=== PATIENT | male | born 1960 | race Caucasian/White ===

== ENCOUNTER 2018-06-29 13:24 | Outpatient (CLI) | payer MEDICAID, SELFPAY ==
[2018-06-29 14:42] LABS: ALT 27 U/L (12-78); AST 15 U/L (15-37); Albumin 3.9 g/dL (3.4-5.0); Alkaline Phosphatase 57 U/L (46-116); Anion Gap 10.2 mmol/L (3-11); BUN 14 mg/dL (7-18); Bilirubin, Total 0.2 mg/dL (0.2-1.0); CO2 29.8 mmol/L (21.0-32.0); CREATININE 1.19 mg/dL (0.70-1.30); Calcium 9.4 mg/dL (8.5-10.1); Chloride 100 mmol/L (98-107); Glucose 102 mg/dL (70-100); Potassium 3.5 mmol/L (3.5-5.1); Sodium 140 mmol/L (136-145); Total Protein 7.2 g/dL (6.4-8.2)
[2018-07-03 14:26] LABS: HIV-1 RNA Quantification <20 copies/mL (UNDECT)
== END 2018-06-29 13:44 ==
PROVIDERS: PCP Nurse Practitioner Family; Visit Provider Nurse Practitioner Family
DX: B20 Human immunodeficiency virus [HIV] disease (principal); Z79.899 Other long term (current) drug therapy
CPT/HCPCS: 36415; 80053; 87536

== ENCOUNTER 2018-07-17 13:17 | Outpatient (CLI) | payer MEDICAID, SELFPAY | END 2018-07-17 13:37 | PROVIDERS: PCP Nurse Practitioner Family; Referring Provider Nurse Practitioner Family; Visit Provider Internal Medicine Infectious Disease | DX: B20 Human immunodeficiency virus [HIV] disease (principal); Z79.899 Other long term (current) drug therapy | CPT/HCPCS: 99215 ==

== ENCOUNTER 2018-12-12 09:24 | Outpatient (CLI) | payer MEDICAID, SELFPAY ==
[2018-12-12 09:58] LABS: Abs Immature Grans 0.01 k/cumm (0.0-0.09); Absolute Basophil Count 0.02 k/cumm (0.0-0.2); Absolute Eosinophil Count 0.09 k/cumm (0.0-0.7); Absolute Lymphocyte Count 1.37 k/cumm (1.2-3.4); Absolute Monocyte Count 0.37 k/cumm (0.11-0.7); Absolute Neutrophil Count 2.21 k/cumm (1.2-6.7); Basophils % 0.5; Eosinophils % 2.2; HCT 43.6 % (40.0-50.0); HGB 14.7 g/dL (13.5-17.5); Immature Grans % 0.2; Lymphocytes % 33.7; Mean Corp. HGB Concentration 33.7 g/dL (32.0-36.0); Monocytes % 9.1; Neutrophils % 54.3; Platelet Count 220 x1000/uL (130-400); RBC 4.59 m/cumm (4.50-6.00); RBC Distribution Width 13.3 % (11.8-14.1); White Blood Cell Count 4.07 k/cumm (4.4-10.8)
[2018-12-12 10:24] LABS: ALT 31 U/L (12-78); AST 12 U/L (15-37); Albumin 3.8 g/dL (3.4-5.0); Alkaline Phosphatase 53 U/L (46-116); Anion Gap 7.5 mmol/L (3-11); BUN 18 mg/dL (7-18); Bilirubin, Total 0.4 mg/dL (0.2-1.0); CO2 30.5 mmol/L (21.0-32.0); Calcium 8.9 mg/dL (8.5-10.1); Chloride 103 mmol/L (98-107); Cholesterol 206 mg/dL (50-200); Glucose 96 mg/dL (70-100); HDL Cholesterol 31 mg/dL (40-60); LDL CHOLESTEROL 152 mg/dL (<100); Potassium 4.1 mmol/L (3.5-5.1); Sodium 141 mmol/L (136-145); Total Protein 7.2 g/dL (6.4-8.2); Triglyceride 106 mg/dL (30-150)
[2018-12-13 12:20] LABS: CD3 72 % (62-87); CD4 27 % (35-63); CD8 44 % (10-35)
[2018-12-14 15:12] LABS: HIV-1 RNA Quantification Undetected copies/mL (UNDECT)
== END 2018-12-12 09:44 ==
PROVIDERS: PCP Nurse Practitioner Family; Referring Provider Nurse Practitioner Family; Visit Provider Internal Medicine Infectious Disease
DX: B20 Human immunodeficiency virus [HIV] disease (principal); Z79.899 Other long term (current) drug therapy
CPT/HCPCS: 36415; 80053; 80061; 83721; 87536; 85025; 86359; 86360

== ENCOUNTER 2018-12-18 08:00 | Outpatient (CLI) | payer MEDICAID, SELFPAY | END 2018-12-18 08:20 | PROVIDERS: PCP Nurse Practitioner Family; Referring Provider Nurse Practitioner Family; Visit Provider Internal Medicine Infectious Disease | DX: B20 Human immunodeficiency virus [HIV] disease (principal); Z79.899 Other long term (current) drug therapy | CPT/HCPCS: 99215 ==

== ENCOUNTER 2019-05-18 12:14 | Outpatient (CLI) | payer MEDICAID, SELFPAY ==
[2019-05-18 13:28] LABS: Abs Immature Grans 0.01 k/cumm (0.0-0.09); Absolute Basophil Count 0.02 k/cumm (0.0-0.2); Absolute Eosinophil Count 0.13 k/cumm (0.0-0.7); Absolute Lymphocyte Count 1.52 k/cumm (1.2-3.4); Absolute Monocyte Count 0.37 k/cumm (0.11-0.7); Absolute Neutrophil Count 2.42 k/cumm (1.2-6.7); Basophils % 0.4; Eosinophils % 2.9; HCT 43.2 % (40.0-50.0); HGB 14.5 g/dL (13.5-17.5); Immature Grans % 0.2; Mean Corp. HGB Concentration 33.6 g/dL (32.0-36.0); Mean Corpuscular Hemoglobin 32.2 pg (27.0-33.0); Mean Corpuscular Volume 95.8 fL (80-95); Monocytes % 8.3; Neutrophils % 54.2; Platelet Count 243 x1000/uL (130-400); RBC 4.51 m/cumm (4.50-6.00); RBC Distribution Width 13.6 % (11.8-14.1); White Blood Cell Count 4.47 k/cumm (4.4-10.8)
[2019-05-18 13:59] LABS: Hemoglobin A1C 5.8 % (4.5-6.2)
[2019-05-18 14:11] LABS: ALT 24 U/L (16-63); AST 12 U/L (15-37); Alkaline Phosphatase 64 U/L (46-116); Anion Gap 10.1 mmol/L (3-11); BUN 8 mg/dL (7-18); Bilirubin, Total 0.3 mg/dL (0.2-1.0); CO2 26.9 mmol/L (21.0-32.0); CREATININE 1.11 mg/dL (0.70-1.30); Calcium 8.7 mg/dL (8.5-10.1); Chloride 105 mmol/L (98-107); Glucose 97 mg/dL (70-100); Potassium 4.1 mmol/L (3.5-5.1); Sodium 142 mmol/L (136-145); Total Protein 7.4 g/dL (6.4-8.2)
[2019-05-21 08:36] LABS: CD3 71 % (62-87); CD4 31 % (35-63); CD8 38 % (10-35)
[2019-05-21 15:45] LABS: HIV-1 RNA Quantification Undetected copies/mL (UNDECT)
== END 2019-05-18 12:34 ==
PROVIDERS: PCP Nurse Practitioner Family; Visit Provider Internal Medicine Infectious Disease
DX: B20 Human immunodeficiency virus [HIV] disease (principal); Z79.899 Other long term (current) drug therapy; R73.01 Impaired fasting glucose
CPT/HCPCS: 36415; 80053; 87536; 83036; 85025; 86359; 86360

== ENCOUNTER 2019-06-04 16:31 | Outpatient (CLI) | payer MEDICAID, SELFPAY | END 2019-06-04 16:51 | PROVIDERS: PCP Nurse Practitioner Family; Referring Provider Nurse Practitioner Family; Visit Provider Internal Medicine Infectious Disease | DX: B20 Human immunodeficiency virus [HIV] disease (principal); Z79.899 Other long term (current) drug therapy; Z23 Encounter for immunization | CPT/HCPCS: 90471; 90686; 99215 ==

== ENCOUNTER 2019-06-25 15:03 | Outpatient (REF) | payer MEDICAID, SELFPAY | END 2019-06-25 15:23 | LOC: LBN 15:03 | PROVIDERS: PCP Nurse Practitioner Family; Visit Provider Family Medicine | DX: L02.412 Cutaneous abscess of left axilla (principal) | CPT/HCPCS: 87070; 87205 ==

== ENCOUNTER 2020-02-15 14:45 | Outpatient (REF) | payer MEDICAID, SELFPAY ==
[2020-02-15 19:18] LABS: Anion Gap 9.1 mmol/L (3-11); BUN 17 mg/dL (7-18); CO2 29.9 mmol/L (21.0-32.0); CREATININE 1.31 mg/dL (0.70-1.30); Calcium 9.1 mg/dL (8.5-10.1); Chloride 101 mmol/L (98-107); Estimated GFR 55.63 (mL/min/1.73m2); Glucose 98 mg/dL (74-106); Potassium 3.2 mmol/L (3.5-5.1); Sodium 140 mmol/L (136-145)
== END 2020-02-15 15:05 ==
LOC: LBN 14:45
PROVIDERS: PCP Nurse Practitioner Family; Visit Provider Nurse Practitioner Family
DX: I10 Essential (primary) hypertension (principal)
CPT/HCPCS: 80048; 80061

== ENCOUNTER 2020-04-15 04:13 | Outpatient (CLI) | payer MEDICAID, SELFPAY ==
[2020-04-15 14:03] LABS: BUN 15 mg/dL (7-18); CREATININE 1.28 mg/dL (0.70-1.30); Calcium 9.5 mg/dL (8.5-10.1); Chloride 100 mmol/L (98-107); Estimated GFR 57.13 (mL/min/1.73m2); Glucose 95 mg/dL (74-106); Potassium 3.3 mmol/L (3.5-5.1); Sodium 139 mmol/L (136-145)
== END 2020-04-15 04:33 ==
PROVIDERS: PCP Nurse Practitioner Family; Visit Provider Nurse Practitioner Family
DX: E87.6 Hypokalemia (principal); N28.9 Disorder of kidney and ureter, unspecified
CPT/HCPCS: 36415; 80048

== ENCOUNTER 2020-07-15 02:13 | Outpatient (CLI) | payer MEDICAID, SELFPAY ==
[2020-07-15 12:15] LABS: Abs Immature Grans 0.01 10^3/uL (0.0-0.06); Absolute Basophil Count 0.02 10^3/uL (0.0-0.2); Absolute Eosinophil Count 0.13 10^3/uL (0.0-0.7); Absolute Lymphocyte Count 1.55 10^3/uL (1.2-3.4); Absolute Monocyte Count 0.43 10^3/uL (0.1-0.8); Absolute Neutrophil Count 2.65 10^3/uL (1.2-6.7); Basophils % 0.4; Eosinophils % 2.7; HCT 42.7 % (40.0-50.0); Immature Grans % 0.2; Lymphocytes % 32.4; MCHC 35.1 % (32.0-36.0); MCV 93.8 fL (80-95); MPV 8.9 fL (8.0-11.0); Neutrophils % 55.3; Nucleated RBC 0 %; Platelet Count 240 10^3/uL (130-400); RBC 4.55 10^6/uL (4.36-5.78); RDW 12.8 % (11.8-14.1); WBC 4.79 10^3/uL (4.4-10.8)
[2020-07-15 13:25] LABS: ALT 31 U/L (16-63); AST 18 U/L (15-37); Alkaline Phosphatase 55 U/L (46-116); Anion Gap 9.7 mmol/L (3-11); BUN 16 mg/dL (7-18); Bilirubin, Total 0.4 mg/dL (0.2-1.0); CO2 29.3 mmol/L (21.0-32.0); CREATININE 1.23 mg/dL (0.70-1.30); Calcium 8.9 mg/dL (8.5-10.1); Chloride 101 mmol/L (98-107); Estimated GFR 59.63 (mL/min/1.73m2); Glucose 95 mg/dL (74-106); Potassium 3.3 mmol/L (3.5-5.1); Sodium 140 mmol/L (136-145); Total Protein 7.2 g/dL (6.4-8.2)
[2020-07-18 16:26] LABS: CD3 71 % (62-87); CD4 35 % (35-63); CD8 34 % (10-35)
[2020-07-25 12:41] LABS: HIV 1 RNA Quantitative <20 (Undetected)
== END 2020-07-15 02:33 ==
PROVIDERS: PCP Nurse Practitioner Family; Visit Provider Internal Medicine Infectious Disease
DX: B20 Human immunodeficiency virus [HIV] disease (principal); Z79.899 Other long term (current) drug therapy
CPT/HCPCS: 36415; 80053; 87536; 85025; 86359; 86360

== ENCOUNTER 2020-08-06 03:09 | Outpatient (CLI) | payer MEDICAID, SELFPAY ==
[2020-08-08 09:37] LABS: COVID-19 RT-PCR Result NEGATIVE (Negative)
== END 2020-08-06 03:29 ==
PROVIDERS: PCP Nurse Practitioner Family; Visit Provider Nurse Practitioner Family
DX: Z11.59 Encounter for screening for other viral diseases (principal)
CPT/HCPCS: U0003

== ENCOUNTER 2020-10-13 01:31 | Outpatient (CLI) | payer MEDICAID, SELFPAY ==
--- NOTE | 2020-10-13 08:45 | DI.US_ITS ---
EXAM: US RENAL CLINICAL HISTORY: Mild renal insuff,?CKD vs. other?,n28.9. TECHNIQUE: Tam scale, color and spectral Doppler were used. COMPARISON: No exams were available for comparison FINDINGS: Renal size in cm: Right: 11.2. Left: 10.2. Echogenicity: Normal. Hydronephrosis: No. Cyst or mass: 1 x 0.6 x 0.8 cm simple cyst in the superior pole of the right kidney. Nephrolithiasis: No. Other findings: None. Bladder:The urinary bladder was inadequately distended for appropriate evaluation. The urinary bladd er wall measured 6 mm in thickness however this likely is due to inadequate distention. Sequelae of bladder outlet obstruction or cystitis are considered less likely. Please correlate with clinical fi ndings. Ureteral jets: Right: Not visualized on this examination. Left: Not visualized on this examination. Prevoid vol:8 cc Postvoid vol:Patient unable to void. Prostate: 15 cc Renal color flow: Symmetric and within normal limits. IMPRESSION: 1. No hydronephrosis or nephrolithiasis. 2. The urinary bladder could not be appropriately evaluated due to inadequate preparation. DATA REPOSITORY:
== END 2020-10-13 01:32 | disposition home or self-care (01) ==
LOC: DI 01:32
PROVIDERS: PCP Nurse Practitioner Family; Visit Provider Nurse Practitioner Family
DX: N28.9 Disorder of kidney and ureter, unspecified (principal)
CPT/HCPCS: 76770

== ENCOUNTER 2020-10-13 03:28 | Outpatient (CLI) | payer MEDICAID, SELFPAY ==
[2020-10-13 14:34] LABS: Hemoglobin A1C 5.6 % (<5.7)
[2020-10-13 14:40] LABS: Bilirubin Negative (Negative); Blood Negative (Negative); Clarity Clear (Clear); Glucose Negative (Negative); Ketones Negative (Negative); Leukocyte Esterase Negative (Negative); Nitrite Negative (Negative); Specific Gravity 1.025 (1.005-1.025); Urobilinogen 0.2 EU/dL (Up TO 0.2)
[2020-10-13 14:54] LABS: Calculated LDL 94 mg/dL (<100); Cholesterol 152 mg/dL (<200); HDL Cholesterol 37 mg/dL (40-60); Triglyceride 109 mg/dL (<150)
[2020-10-13 14:58] LABS: Bacteria Rare HPF (Negative); C & S Indicated? No; Casts Negative LPF (Negative); Crystals Negative HPF (Negative); Epithelial Cells Rare HPF (Negative); Mucus Trace (Negative); Other Cells Rare Renal (Negative); RBC Negative HPF (0-2); WBC 0-2 HPF (0-5)
== END 2020-10-13 03:29 | disposition home or self-care (01) ==
LOC: LBO 03:28
PROVIDERS: PCP Nurse Practitioner Family; Visit Provider Nurse Practitioner Family
DX: E78.5 Hyperlipidemia, unspecified (principal); R73.01 Impaired fasting glucose; N28.9 Disorder of kidney and ureter, unspecified
CPT/HCPCS: 36415; 76770; 80061; 81003; 81015; 83036

== ENCOUNTER 2020-12-10 03:31 | Outpatient (CLI) | payer MEDICAID, SELFPAY ==
[2020-12-10 12:45] LABS: Anion Gap 10.2 mmol/L (3-11); BUN 17 mg/dL (7-18); CO2 27.8 mmol/L (21.0-32.0); CREATININE 1.2 mg/dL (0.70-1.30); Calcium 8.5 mg/dL (8.5-10.1); Chloride 102 mmol/L (98-107); Glucose 84 mg/dL (74-106); Potassium 4.2 mmol/L (3.5-5.1); Sodium 140 mmol/L (136-145)
== END 2020-12-10 03:32 | disposition home or self-care (01) ==
LOC: LBO 03:31
PROVIDERS: PCP Nurse Practitioner Family; Visit Provider Nurse Practitioner Family
DX: I10 Essential (primary) hypertension (principal); N18.9 Chronic kidney disease, unspecified
CPT/HCPCS: 36415; 80048

== ENCOUNTER 2021-02-10 03:50 | Outpatient (CLI) | payer MEDICAID, SELFPAY ==
[2021-02-10 11:34] LABS: Abs Immature Grans 0.03 10^3/uL (0.0-0.06); Absolute Basophil Count 0.04 10^3/uL (0.0-0.2); Absolute Eosinophil Count 0.24 10^3/uL (0.0-0.7); Absolute Lymphocyte Count 1.96 10^3/uL (1.2-3.4); Absolute Monocyte Count 0.56 10^3/uL (0.1-0.8); Absolute Neutrophil Count 2.98 10^3/uL (1.2-6.7); Basophils % 0.7; Eosinophils % 4.1; HCT 45.8 % (40.0-50.0); HGB 15.1 g/dL (13.5-17.5); Immature Grans % 0.5; Lymphocytes % 33.7; MCH 31.7 pg (27.0-33.0); MCV 96.2 fL (80-95); MPV 8.9 fL (8.0-11.0); Monocytes % 9.6; Neutrophils % 51.4; Nucleated RBC 0 %; Platelet Count 201 10^3/uL (130-400); RBC 4.76 10^6/uL (4.36-5.78); RDW 12.5 % (11.8-14.1); WBC 5.81 10^3/uL (4.4-10.8)
[2021-02-10 12:01] LABS: Hemoglobin A1C 5.7 % (<5.7)
[2021-02-10 12:02] LABS: ALT 25 U/L (16-63); AST 12 U/L (15-37); Albumin 4.1 g/dL (3.4-5.0); Alkaline Phosphatase 64 U/L (46-116); Anion Gap 9.2 mmol/L (3-11); BUN 17 mg/dL (7-18); Bilirubin, Total 0.6 mg/dL (0.2-1.0); CO2 27.8 mmol/L (21.0-32.0); CREATININE 1.2 mg/dL (0.70-1.30); Calcium 9.1 mg/dL (8.5-10.1); Calculated LDL 94 mg/dL (<100); Chloride 103 mmol/L (98-107); Cholesterol 162 mg/dL (<200); Glucose 101 mg/dL (74-106); HDL Cholesterol 36 mg/dL (40-60); Potassium 4.1 mmol/L (3.5-5.1); Sodium 140 mmol/L (136-145); Total Protein 7.4 g/dL (6.4-8.2); Triglyceride 162 mg/dL (<150)
[2021-02-11 14:34] LABS: Absolute CD3 1513 Cells/uL (840-2,669); Absolute CD8 813 Cells/uL (154-1,097); CD3 70 % (56-84); CD4 30 % (31-64); CD8 38 % (9-39)
[2021-02-12 14:22] LABS: HIV 1 RNA Qualitative Undetected copies/mL (Undetected)
== END 2021-02-10 03:51 | disposition home or self-care (01) ==
LOC: LBO 03:50
PROVIDERS: PCP Nurse Practitioner Family; Visit Provider Internal Medicine Infectious Disease
DX: B20 Human immunodeficiency virus [HIV] disease (principal); Z79.899 Other long term (current) drug therapy; E78.5 Hyperlipidemia, unspecified; I10 Essential (primary) hypertension
CPT/HCPCS: 36415; 80053; 80061; 87536; 83036; 85025; 86359; 86360

== ENCOUNTER 2021-02-16 10:00 | Outpatient (CLI) | payer MEDICAID, SELFPAY | END 2021-02-16 10:01 | disposition home or self-care (01) | LOC: CCC 02-17 13:56 | PROVIDERS: PCP Nurse Practitioner Family; Referring Provider Nurse Practitioner Family; Visit Provider Internal Medicine Infectious Disease | DX: B20 Human immunodeficiency virus [HIV] disease (principal); Z79.899 Other long term (current) drug therapy ==

== ENCOUNTER 2021-08-12 02:13 | Outpatient (CLI) | payer MEDICAID, SELFPAY ==
[2021-08-12 14:18] LABS: ALT 23 U/L (16-63); AST 13 U/L (15-37); Albumin 3.9 g/dL (3.4-5.0); Alkaline Phosphatase 58 U/L (46-116); Anion Gap 7.1 mmol/L (3-11); BUN 13 mg/dL (7-18); Bilirubin, Total 0.4 mg/dL (0.2-1.0); CO2 27.9 mmol/L (21.0-32.0); CREATININE 1.1 mg/dL (0.70-1.30); Calcium 8.6 mg/dL (8.5-10.1); Chloride 104 mmol/L (98-107); Glucose 83 mg/dL (74-106); Potassium 4.1 mmol/L (3.5-5.1); Sodium 139 mmol/L (136-145); Total Protein 7.2 g/dL (6.4-8.2)
[2021-08-13 12:57] LABS: HIV 1 RNA Qualitative Undetected copies/mL (Undetected)
== END 2021-08-12 02:14 | disposition home or self-care (01) ==
LOC: LBO 02:13
PROVIDERS: PCP Nurse Practitioner Family; Visit Provider Nurse Practitioner Family
DX: B20 Human immunodeficiency virus [HIV] disease (principal); Z79.899 Other long term (current) drug therapy
CPT/HCPCS: 36415; 80053; 87536

== ENCOUNTER 2022-06-23 02:38 | Outpatient (CLI) | payer MEDICAID, SELFPAY ==
[2022-06-23 11:40] LABS: Calculated LDL 82 mg/dL (<100); Cholesterol 139 mg/dL (<200); HDL Cholesterol 33 mg/dL (40-60); Triglyceride 122 mg/dL (<150)
== END 2022-06-23 02:39 | disposition home or self-care (01) ==
LOC: LBO 02:38
PROVIDERS: PCP Nurse Practitioner Family; Visit Provider Nurse Practitioner Family
DX: R73.01 Impaired fasting glucose (principal); E78.5 Hyperlipidemia, unspecified
CPT/HCPCS: 36415; 80061; 83036

== ENCOUNTER 2022-12-23 11:14 | Day surgery (SDC) | payer MEDICAID, SELFPAY ==
--- NOTE | 2022-12-22 21:57 | PDOC.DSDIS_ITS ---
Date of service: 12/23/22 Time of Service: 13:14 Discharge Plan Disposition Patient Disposition: Home Condition: Good Discharge Details Reason For Visit: Screening colonoscopy Attending Provider: Jose Dueñas Primary Care Provider: Melissa Hernandez Home Meds and New Rx's Prescriptions: Continued fluticasone propionate [Flonase Allergy Relief] 50 mcg/actuation spray,suspension 1 spray ULISES DAILY PRN (Reason: allergy symptoms) ciprofloxacin HCl [Ciloxan] 0.3 % drops See Rx Instructions ophthalmic (eye) .COMPLEX Qty: 5 0RF Rx Instructions: put 1-2 drps in left eye(s) every 2hr up to 8 times/day x2days; then 4 times/day x5days ophthalmic (eye) losartan 100 mg tablet 100 mg PO DAILY Qty: 90 3RF clotrimazole [Lotrimin AF (clotrimazole)] 1 % cream 1 applic topical BID PRN (Reason: yeast) Qty: 45 3RF Rx Instructions: Apply thin film to affected area, including zone of surrounding normal skin, until resolution (usually 4 weeks) cyclobenzaprine 5 mg tablet 5 mg PO TID PRN (Reason: muscle spasm) Qty: 30 0RF ritonavir [Norvir] 100 MG tablet 100 mg PO DAILY Rx Instructions: Sana Moffett MD Prezista 800 MG tablet 800 mg PO DAILY Rx Instructions: Sana Moffett MD Triumeq 1 EACH tablet 1 ea PO DAILY Rx Instructions: Sana Moffett MD zolpidem [Ambien] 10 mg tablet 10 mg PO QHS Patient Comments: Per [facility] note 04/02/20 trazodone 50 mg tablet 50 mg PO DAILY PRN (Reason: sleep) Rx Instructions: note dated 06/04/21 [facility] atorvastatin 10 mg tablet 10 mg PO DAILY Qty: 90 3RF Claritin-D 24 Hour 10-240 mg tablet extended release 24 hr 1 tab PO DAILY PRNQty: 90 Discontinued polyethylene glycol 3350 17 gram/dose powder 238 g PO ONCE Qty: 238 0RF Rx Instructions: take per colonoscopy instructions bisacodyl [Dulcolax (bisacodyl)] 5 mg tablet,delayed release (DR/EC) 5 mg PO ONCE Qty: 4 0RF Rx Instructions: take per colonoscopy instructions Discharge Instructions Instructions: Colorectal Polyps (GEN), Diverticulosis (GEN), Diverticulosis Diet (GEN), Hemorrhoids (GEN) Additional Instructions: Burak, we are able to complete your colonoscopy without any difficulty today. You have some mild internal hemorrhoids, as well as some diverticulosis. We have attached some information here regarding general management of those. I did find 1 polyp in your large intestine. I removed it completely. I will be in touch when I have the pathology results of what type of polyp that is. 1. If tolerated, consume a soft, low fiber diet for 1-2 days. 2[address] Do not drive, drink alcohol, operate machinery, make critical decisions, or do activities that require coordination or balance for 24 hours. 3. Because air was put into your colon during the procedure, expelling air from your rectum (passing gas or farting) is normal. 4. You may not have a bowel movement for 1-3 days because of the colonoscopy prep. This is normal. 5. Go directly to the emergency room if you notice any of the following: Develop chills (warm to touch), or if you have a thermometer and your temperature is above 101 Difficulty breathing or difficultly swallowing Persistent vomiting Severe abdominal pain, other than gas cramps Severe chest pain Black, tarry stools Any bleeding ? exceeding one tablespoon 6. Call your physician if the site where your intravenous was started becomes red, swollen, painful, and warm to touch. 7. Your physician has reviewed your pre-procedure medications. Please continue to take those medications as previously ordered. You will be given specific information/education regarding any changes to your medications before leaving. Activity:: Activity as Tolerated Diet:: As Tolerated Discharge Orders Discharge Orders: Discharge Order (Routine); Ordered 12/22/22 Ordered By: Jose Dueñas DS: Diagnosis Discharge Diagnosis (1) Screening for colon cancer: Status: Acute Asessment and Plan: I will follow-up on pathology result from the polypectomy.
--- NOTE | 2022-12-22 21:59 | W.COLOREPORT ---
Date of service: 12/23/22 Time of Service: 13:18 Colonoscopy Report Date of procedure: 12/23/22 Pre-op diagnosis general: Screening colonoscopy Post-op diagnosis procedure note: other (Internal hemorrhoids, diverticulosis, colon polyp) Procedure: Colonoscopy with polypectomy Surgeon: Jose Dueñas Anesthesia Type: General:No Airway Estimated blood loss (mL): 10 Pathology: other (1 polyp from 100 cm) Complications: None Disposition: same day Indications: Burak is a 62 year old male with a fmily history of colon cancer who is here for a screening colonoscopy Prep: Miralax/Dulcolax Procedure Start Time: 12:47 Procedure End Time: 13:09 Retraction Time: 12 Procedure Description: After the induction of monitored anesthetic care, and with the patient in left lateral decubitus position, I began by performing an external anorectal exam.? Perineum and skin were normal, as was the anal verge.? There was no evidence of external hemorrhoids.? Next, I performed a digital rectal exam.? I did not appreciate any abnormal findings.? Next, I advanced a colonoscope into the rectal vault.? I performed retroflexion.? There is some grade 1 internal hemorrhoids.? There was some sigmoid diverticulosis. Using insufflation, I then advanced the colonoscope beyond the rectal folds and into the sigmoid colon before advancing towards the cecum.?Around 100 cm from the anal verge I identified a 0.25 cm polyp. ?It appeared sessile in character. ?I was able to remove this with a cold forcep polypectomy. ?I examined the site, and there was minimal bleeding. ?Once this was completed, I continued to withdraw the scope and examine the remainder of the colonic mucosa. The quality of the prep was excellent.? The scope was noted to be in the cecum by identification of the ileocecal valve and appendiceal orifice.? I then began withdrawing the colonoscope using repeated irrigation as necessary for full evaluation of the colonic mucosa. ?Once the scope was withdrawn to the level of the rectum, great care was taken to examine portions of the rectal folds.? Finally, the scope was withdrawn and the patient was brought to the same-day surgery recovery unit as the anesthetic wore off. ?The findings and instructions were shared with the patient prior to discharge.
[2022-12-23 11:35] VITALS: BP 145/86; PULSE 75; RESP 16; TEMP 36.1; O2SAT 96
[2022-12-23] MEDS: Lactated Ringers 1,000 ML 80 ML IV (12:04)
--- NOTE | 2022-12-23 12:07 | W.ANESPRE ---
General Info Date of Service Date Performed: 12/23/22 Height: 5 ft 7 in Weight: 115.6 kg Body Mass Index (BMI): 39.9 Surgical Procedure: Operation Date: 12/23/22 12:50 Proposed Procedure Side Surgeon wero Dueñas MD Meds Allergies and Home Medications Allergies Allergy/AdvReac Type Severity Reaction Status Date / Time lisinopril AdvReac Intermediate Contraindic Uncoded 12/23/22 11:46 ated Home Medication Medication Instructions Recorded abacavir 600 mg-dolutegravir 50 1 ea PO DAILY 08/23/16 mg-lamivudine 300 mg tablet (Triumeq) darunavir ethanolate 800 mg tablet 800 mg PO DAILY 08/23/16 (Prezista) ritonavir 100 mg tablet (Norvir) 100 mg PO DAILY 08/23/16 fluticasone propionate 50 1 spray intranasal DAILY PRN 08/30/18 mcg/actuation nasal allergy symptoms spray,suspension (Flonase Allergy Relief) zolpidem 10 mg tablet (Ambien) 10 mg PO QHS 04/03/20 trazodone 50 mg tablet 50 mg PO DAILY PRN sleep 09/29/21 atorvastatin 10 mg tablet 10 mg PO DAILY #90 tab-caps 05/03/22 clotrimazole 1 % topical cream 1 applic topical BID PRN yeast #45 06/30/22 (Lotrimin AF (clotrimazole)) grams cyclobenzaprine 5 mg tablet 5 mg PO TID PRN muscle spasm #30 06/30/22 tab-caps losartan 100 mg tablet 100 mg PO DAILY #90 tab-caps 06/30/22 ciprofloxacin HCl 0.3 % eye drops See Rx Instructions ophthalmic 10/25/22 (Ciloxan) (eye) .COMPLEX #5 mL loratadine-pseudoephedrine ER 10 1 tab PO DAILY PRN #90 tab-caps 12/16/22 mg-240 mg tablet,extended [id number] (Claritin-D 24 Hour) Current Visit Medications: Current Medications Generic Name Dose Route Start Last Admin Trade Name Freq PRN Reason Stop Dose Admin Hyoscyamine Sulfate 0.125 mg 12/22/22 22:01 Hyoscyamine 0.125 Mg Sl/Oral/Chew SL DIRECTED PRN Ringer's Solution 1,000 mls @ 80 mls/hr 12/23/22 06:00 12/23/22 12:04 IV 01/21/23 23:59 80 mls/hr INFUSION DAVE Administration IV Miscellaneous Supplies 1 each 12/23/22 06:00 Iv Access IV 01/21/23 23:59 DIRECTED DAVE Ondansetron HCl 4 mg 12/22/22 22:01 Ondansetron 4 Mg/2 Ml Vial IVP Q4H PRN PRN Nausea / Vomiting Sodium Chloride 0 ml 12/23/22 06:00 Normal Saline Flush 10 Ml Syr IV 01/21/23 23:59 PRN PRN Sodium Chloride 0 ml 12/23/22 06:00 Normal Saline 10 Ml Vial IJ 01/21/23 23:59 DIRECTED PRN Sterile Water 0 ml 12/23/22 06:00 Water,Injection,Sterile 10 Ml Vial IJ 01/21/23 23:59 DIRECTED PRN PFSH Active Problems Active Problems: Problem Status Onset Code Screening for colon cancer Z12.11 Bipolar I disorder, current or most recent episode depressed, with psychotic features F31.5 Obesity E66.9 HIV (human immunodeficiency virus infection) B20 CKD (chronic kidney disease) N18.9 IFG (impaired fasting glucose) R73.01 BEBETO (obstructive sleep apnea) G47.33 Neuropathy G62.9 Hepatitis B antibody positive 10/28/15 R76.8 Insomnia, unspecified G47.00 Hyperlipidemia, unspecified 09/03/15 E78.5 Essential hypertension I10 Chronic mental illness F99 Medical History Medical History Mental health disorder Dx bipolar disorder Medical History Comments:: Pt. states if he lays flat it is really uncomfortable to breathe for him Surgical History Surgical History Biopsy, Soft Tissue (05/12/17) skin of left upper arm -actinic keratosis. Skin of left lower arm - actinic keratosis. Colonoscopy - IV Sedation (09/17/16) Tobacco Smoking/Tobacco Use Status: Never Passive smoking exposure: No Alcohol Alcohol Intake: current Alcohol intake frequency: holidays/special occasions only Substance Use Substance use: Never Substance use type: does not use Vital Signs and Lab Results Vital Signs Most Recent Vital Signs in EMR: Most Recent Vital Signs Temp Pulse Resp BP Pulse Ox 36.1 C L 75 16 145/86 H 96 12/23/22 11:35 12/23/22 11:35 12/23/22 11:35 12/23/22 11:35 12/23/22 11:35 Lab Results Blood Type / Crossmatch: No Data to Display Complete Blood Count: No Data to Display Complete Metabolic Panel: No Data to Display Liver Function Panel: No Data to Display Coagulation Panel: No Data to Display Cardiac Panel: No Data to Display Arterial Blood Gas: No Data to Display Venous Blood Gas: No Data to Display Pancreas Panel: No Data to Display Thyroid Panel: No Data to Display Infectious Disease: No Data to Display Blood Cultures: No Data to Display Toxicology Panel: No Data to Display Anesthesia Assessment and Plan Anesthesia History Personal History: No History of Anesthesia Complications Family History: No Family History of Anesthesia Complications Pertinent Negatives Pertinent Negatives: No Symptoms of GERD Cardiac & Pulmonary Exam Cardiac Exam: Normal S1/S2 Heart Sounds Pulmonary Exam: Clear Bilateral Breath Sounds Implantable Cardiac Device Does patient have a Pacemaker or an ICD?: No Airway Exam Known Difficult Airway: No Neck Range of Motion: Full ROM NPO Status NPO Status: NPO Clears >2 hours, Solids >8 hours Anesthesia Plan Resuscitation Status: Full Code Anesthesia Technique: General Anesthesia Airway Planned: Natural Airway Monitors Used: Standard Monitors
--- NOTE | 2022-12-23 12:20 | W.ANESPRE ---
General Info Date of Service Date Performed: 12/23/22 Height: 5 ft 7 in Weight: 115.6 kg Body Mass Index (BMI): 39.9 Surgical Procedure: Operation Date: 12/23/22 12:50 Proposed Procedure Side Surgeon wero Dueñas MD Meds Allergies and Home Medications Allergies Allergy/AdvReac Type Severity Reaction Status Date / Time lisinopril AdvReac Intermediate Contraindic Uncoded 12/23/22 11:46 ated Home Medication Medication Instructions Recorded abacavir 600 mg-dolutegravir 50 1 ea PO DAILY 08/23/16 mg-lamivudine 300 mg tablet (Triumeq) darunavir ethanolate 800 mg tablet 800 mg PO DAILY 08/23/16 (Prezista) ritonavir 100 mg tablet (Norvir) 100 mg PO DAILY 08/23/16 fluticasone propionate 50 1 spray intranasal DAILY PRN 08/30/18 mcg/actuation nasal allergy symptoms spray,suspension (Flonase Allergy Relief) zolpidem 10 mg tablet (Ambien) 10 mg PO QHS 04/03/20 trazodone 50 mg tablet 50 mg PO DAILY PRN sleep 09/29/21 atorvastatin 10 mg tablet 10 mg PO DAILY #90 tab-caps 05/03/22 clotrimazole 1 % topical cream 1 applic topical BID PRN yeast #45 06/30/22 (Lotrimin AF (clotrimazole)) grams cyclobenzaprine 5 mg tablet 5 mg PO TID PRN muscle spasm #30 06/30/22 tab-caps losartan 100 mg tablet 100 mg PO DAILY #90 tab-caps 06/30/22 ciprofloxacin HCl 0.3 % eye drops See Rx Instructions ophthalmic 10/25/22 (Ciloxan) (eye) .COMPLEX #5 mL loratadine-pseudoephedrine ER 10 1 tab PO DAILY PRN #90 tab-caps 12/16/22 mg-240 mg tablet,extended [id number] (Claritin-D 24 Hour) Current Visit Medications: Current Medications Generic Name Dose Route Start Last Admin Trade Name Freq PRN Reason Stop Dose Admin Hyoscyamine Sulfate 0.125 mg 12/22/22 22:01 Hyoscyamine 0.125 Mg Sl/Oral/Chew SL DIRECTED PRN Ringer's Solution 1,000 mls @ 80 mls/hr 12/23/22 06:00 12/23/22 12:04 IV 01/21/23 23:59 80 mls/hr INFUSION DAVE Administration IV Miscellaneous Supplies 1 each 12/23/22 06:00 Iv Access IV 01/21/23 23:59 DIRECTED DAVE Ondansetron HCl 4 mg 12/22/22 22:01 Ondansetron 4 Mg/2 Ml Vial IVP Q4H PRN PRN Nausea / Vomiting Sodium Chloride 0 ml 12/23/22 06:00 Normal Saline Flush 10 Ml Syr IV 01/21/23 23:59 PRN PRN Sodium Chloride 0 ml 12/23/22 06:00 Normal Saline 10 Ml Vial IJ 01/21/23 23:59 DIRECTED PRN Sterile Water 0 ml 12/23/22 06:00 Water,Injection,Sterile 10 Ml Vial IJ 01/21/23 23:59 DIRECTED PRN PFSH Active Problems Active Problems: Problem Status Onset Code Screening for colon cancer Z12.11 Bipolar I disorder, current or most recent episode depressed, with psychotic features F31.5 Obesity E66.9 HIV (human immunodeficiency virus infection) B20 CKD (chronic kidney disease) N18.9 IFG (impaired fasting glucose) R73.01 BEBETO (obstructive sleep apnea) G47.33 Neuropathy G62.9 Hepatitis B antibody positive 10/28/15 R76.8 Insomnia, unspecified G47.00 Hyperlipidemia, unspecified 09/03/15 E78.5 Essential hypertension I10 Chronic mental illness F99 Medical History Medical History Mental health disorder Dx bipolar disorder Medical History Comments:: Pt. states if he lays flat it is really uncomfortable to breathe for him Surgical History Surgical History Biopsy, Soft Tissue (05/12/17) skin of left upper arm -actinic keratosis. Skin of left lower arm - actinic keratosis. Colonoscopy - IV Sedation (09/17/16) Tobacco Smoking/Tobacco Use Status: Never Passive smoking exposure: No Alcohol Alcohol Intake: current Alcohol intake frequency: holidays/special occasions only Substance Use Substance use: Never Substance use type: does not use Vital Signs and Lab Results Vital Signs Most Recent Vital Signs in EMR: Most Recent Vital Signs Temp Pulse Resp BP Pulse Ox 36.1 C L 75 16 145/86 H 96 12/23/22 11:35 12/23/22 11:35 12/23/22 11:35 12/23/22 11:35 12/23/22 11:35 Lab Results Blood Type / Crossmatch: No Data to Display Complete Blood Count: No Data to Display Complete Metabolic Panel: No Data to Display Liver Function Panel: No Data to Display Coagulation Panel: No Data to Display Cardiac Panel: No Data to Display Arterial Blood Gas: No Data to Display Venous Blood Gas: No Data to Display Pancreas Panel: No Data to Display Thyroid Panel: No Data to Display Infectious Disease: No Data to Display Blood Cultures: No Data to Display Toxicology Panel: No Data to Display Anesthesia Assessment and Plan Anesthesia History Personal History: No History of Anesthesia Complications Family History: No Family History of Anesthesia Complications Exercise Tolerance Exercise Tolerance: Metabolic Equivalents>4 Cardiac & Pulmonary Exam Cardiac Exam: Normal S1/S2 Heart Sounds Pulmonary Exam: Clear Bilateral Breath Sounds Implantable Cardiac Device Does patient have a Pacemaker or an ICD?: No Airway Exam Known Difficult Airway: No Mallampati Class: 3 Mouth Opening: Normal (> 3cm) Thyromental Distance: Greater than 3 cm Neck Range of Motion: Full ROM Neck Circumference: Thick Teeth Condition: Normal Dentition ASA Classification ASA Score: ASA 3 Emergency Case?: No NPO Status NPO Status: NPO Clears >2 hours, Solids >8 hours Anesthesia Plan Resuscitation Status: Full Code Anesthesia Technique: General Anesthesia Airway Planned: Natural Airway Monitors Used: Standard Monitors
[2022-12-23 12:22] VITALS: BMI 39.9
--- NOTE | 2022-12-23 12:32 | W.ANESPOSTOP ---
Postoperative Evaluation Vital Signs Most Recent Imported Vital Signs: Most Recent Vital Signs Temp Pulse Resp BP Pulse Ox 36.1 C L 75 16 145/86 H 96 12/23/22 11:35 12/23/22 11:35 12/23/22 11:35 12/23/22 11:35 12/23/22 11:35
--- NOTE | 2022-12-23 13:00 | BOWEL_PTH ---
PATIENT: Burak Cruz LOC: [facility] U#:[id number] AGE/SX: 62/M ROOM: RE12/23/[address]: Jose Dueñas MD : 1960 BED: DIS: 12/23/2022 SPEC #: [id number] RECD: 12/23/22 17:39 STATUS: SAMARIA REQ #: [id number] SHANON: 12/23/22 13:[address]: Jose Dueñas DEPT: Surgical Specimen RECD BY: Mikayla Killian ENTERED: 12/23/22 17:39 SP TYPE: Bowel OTHR DR: Melissa Hernandez APRN Tissues: 1 - BIOPSY BOWEL Procedures: GROSS AND MICRO LEVEL 4 Comments: [id number]
[2022-12-23 13:22] VITALS: BP 140/84; PULSE 66; RESP 16; TEMP 37; O2SAT 96
--- NOTE | 2022-12-23 13:30 | W.ANESPOSTOP ---
Postoperative Evaluation Date, Time and Location Date Performed: 12/23/22 Time Performed: 13:30 Patient Location: Day Surgery Unit Vital Signs Most Recent Imported Vital Signs: Most Recent Vital Signs Temp Pulse Resp BP Pulse Ox 37.0 C 66 16 140/84 96 12/23/22 13:22 12/23/22 13:22 12/23/22 13:22 12/23/22 13:22 12/23/22 13:22 Pain Score Most Recent Pain Score: Most Recent Pain Score Pain Level 0 12/23/22 13:22 Assessment Mental Status: Awake (Alert & Oriented to Patient Baseline) Airway and Respiratory Function: Patent airway with normal (patient baseline) respiratory exam Cardiovascular Function: Hemodynamically Stable Hydration Status: Adequately Hydrated Nausea & Vomiting: No Nausea or Vomiting Pain: Pt. Denies Any Pain Peripheral Nerve Block: Patient did not receive a nerve block
[2022-12-23 13:51] VITALS: BP 135/81; PULSE 64; RESP 16; TEMP 37.2; O2SAT 97
== END 2022-12-23 14:04 | disposition home or self-care (01) ==
PROVIDERS: PCP Nurse Practitioner Family; Visit Provider Surgery
PROC: 0DJD8ZZ Inspection of Lower Intestinal Tract, Via Natural or Artificial Opening Endoscopic (ICD-10-PCS; CPT 45378; principal; 2022-12-23 12:45)
DX: Z12.11 Encounter for screening for malignant neoplasm of colon (principal); K63.5 Polyp of colon; Z80.0 Family history of malignant neoplasm of digestive organs; K64.0 First degree hemorrhoids; K57.30 Diverticulosis of large intestine without perforation or abscess without bleeding
CPT/HCPCS: 45380; 88305

== ENCOUNTER 2024-08-16 03:21 | Outpatient (CLI) | payer MEDICARE, SELFPAY ==
[2024-08-16 11:12] LABS: Abs Immature Grans 0.02 10^3/uL (0.0-0.06); Absolute Basophil Count 0.02 10^3/uL (0.0-0.2); Absolute Eosinophil Count 0.19 10^3/uL (0.0-0.7); Absolute Lymphocyte Count 1.58 10^3/uL (1.2-3.4); Absolute Monocyte Count 0.48 10^3/uL (0.1-0.8); Basophils % 0.4 %; Eosinophils % 3.5 %; HCT 43.8 % (40.0-50.0); HGB 14.8 g/dL (13.5-17.5); Immature Grans % 0.4 %; Lymphocytes % 29.3 %; MCH 32.1 pg (27.0-33.0); MCHC 33.8 % (32.0-36.0); MCV 95 fL (80-95); MPV 9.2 fL (8.0-11.0); Monocytes % 8.9 %; Neutrophils % 57.5 %; Platelet Count 232 10^3/uL (130-400); RBC 4.61 10^6/uL (4.36-5.78); RDW 12.9 % (11.8-14.1); RDW-SD 45.1 fL; WBC 5.39 10^3/uL (4.4-10.8)
[2024-08-16 11:21] LABS: Hemoglobin A1C 5.7 % (<5.7)
[2024-08-16 11:39] LABS: ALT 18 U/L (16-63); AST 13 U/L (15-37); Albumin 3.8 g/dL (3.4-5.0); Alkaline Phosphatase 59 U/L (46-116); Anion Gap 7.7 mmol/L (3-11); BUN 17 mg/dL (7-18); Bilirubin, Total 0.57 mg/dL (0.2-1.0); CO2 29.3 mmol/L (21.0-32.0); CREATININE 1.4 mg/dL (0.70-1.30); Calcium 9.1 mg/dL (8.5-10.1); Calculated LDL 66 mg/dL (<100); Chloride 105 mmol/L (98-107); Cholesterol 135 mg/dL (<200); Estimated GFR 55.43 (mL/min/1.73m2); Glucose 104 mg/dL (74-106); HDL Cholesterol 31 mg/dL (40-60); Potassium 4.1 mmol/L (3.5-5.1); Sodium 142 mmol/L (136-145); Total Protein 7.6 g/dL (6.4-8.2); Triglyceride 191 mg/dL (<150)
[2024-08-17 15:07] LABS: 4/8 Ratio 0.89 (>=0.90); Absolute CD3 1245 Cells/uL (840-2669); Absolute CD8 652 Cells/uL (154-1097); CD3 69 % (56-84); CD4 32 % (31-64); CD8 36 % (9-39)
[2024-08-20 14:59] LABS: HIV 1 RNA Qualitative Undetected Copys/mL (Undetected)
== END 2024-08-16 03:22 | disposition home or self-care (01) ==
PROVIDERS: PCP Family Medicine; Visit Provider Nurse Practitioner Family
DX: Z79.899 Other long term (current) drug therapy (principal); B20 Human immunodeficiency virus [HIV] disease
CPT/HCPCS: 80053; 80061; 87536; 83036; 85025; 86359; 86360

== ENCOUNTER → 2025-03-19 13:02 | Outpatient (BNVA) | payer MEDICARE, SELFPAY | PROVIDERS: PCP Family Medicine; Referring Provider Family Medicine; Visit Provider Physical Therapy Assistant | DX: D48.5 Neoplasm of uncertain behavior of skin (principal) | CPT/HCPCS: 99213 ==